=== PATIENT | female | born 1955 | race Hispanic/Latino ===

== ENCOUNTER → 2021-12-24 | Outpatient (CLI) | payer OTHER ==
[~2021-12-24] VITALS: Ht 10.2 cm; Wt 109.8 kg
== END | disposition home or self-care (01) ==
LOC: DTH 10:56
PROVIDERS: ATTEND Surgery
DX: Z71.3 Dietary counseling and surveillance (principal); E66.01 Morbid (severe) obesity due to excess calories; M19.91 Primary osteoarthritis, unspecified site; K76.0 Fatty (change of) liver, not elsewhere classified; E78.00 Pure hypercholesterolemia, unspecified
CPT/HCPCS: 97802

== ENCOUNTER 2022-02-11 06:22 | Day surgery (SDC) | payer OTHER ==
[~2022-02-11] VITALS: Ht 160 cm; Wt 120.2 kg
[2022-02-11 08:05] VITALS: BP 131/61
[2022-02-11] MEDS ORDERED: GLYCOPYRROLATE 0.2 MG/ML 5 ML VIAL ONE (09:13)
[2022-02-11] MEDS ORDERED: MIDAZOLAM HCL 1 MG/ML 2ML VIAL ONE (09:13)
[2022-02-11] MEDS ORDERED: PROPOFOL 10 MG/ML 20ML VIAL IV ONE (09:13)
[2022-02-11 09:30] VITALS: BP 141/77
[2022-02-11 09:35] VITALS: BP 128/68
[2022-02-11 09:40] VITALS: BP 124/67
== END 2022-02-11 09:59 | disposition home or self-care (01) ==
LOC: ENDO 06:22 → DAH 06:22 → ENDO 09:59
PROVIDERS: ATTEND Surgery
DX: K21.9 Gastro-esophageal reflux disease without esophagitis (principal); E11.9 Type 2 diabetes mellitus without complications; E78.5 Hyperlipidemia, unspecified; E66.01 Morbid (severe) obesity due to excess calories; E78.00 Pure hypercholesterolemia, unspecified; Z68.41 Body mass index [BMI] 40.0-44.9, adult; Z79.899 Other long term (current) drug therapy
CPT/HCPCS: 43235; 71045; 82948; 87635; 93005; A4215; A4221; A4222; A4223; A4606; A4663; J2250; J2704; J3490; 99152

== ENCOUNTER → 2022-12-13 | Outpatient (CLI) | payer OTHER ==
[~2022-12-13] MED LIST: ALBU8.5H8 IH; ASCO500C6 PO; ATOR20TA65 PO; CETI-89 PO; CHOL500051 PO; IOHEXOL 350 MG/ML 100ML INFUS..BTL IV ONE; MAGN100T5 PO; MONT-39 PO; MVIT PO; SERT-438 PO
== END | disposition home or self-care (01) ==
LOC: RAH 09:45
PROVIDERS: ATTEND Internal Medicine Cardiovascular Disease
DX: I51.7 Cardiomegaly (principal); I35.1 Nonrheumatic aortic (valve) insufficiency; R00.2 Palpitations
CPT/HCPCS: 71275; Q9967

== ENCOUNTER 2025-06-26 05:56 | Day surgery (SDC) | payer MEDICARE ==
[2025-06-24 10:03] LABS: IMMATURE GRANULOCYTE ABSOLUTE 0.01 K/uL (0-1); NUCLEATED RED BLOOD CELLS 0.0 % (0.0-0.19); PLATELET COUNT (AUTO) 184 K/uL (130-400); RED BLOOD CELL COUNT(AUTO) 4.57 MIL/uL (4.00-5.50); RED CELL DISTRIBUTION WIDTH 14.0 % (11.0-15.5); WHITE BLOOD COUNT (AUTO) 7.2 K/uL (4.8-10.8)
--- NOTE | 2025-06-24 10:08 | EKG ---
[facility] Test Date: 2025-06-24 Test Time: 09:51:37 Pat Name: MARY ELLEN ARCHULETA Department: [facility] Room: Gender: F Eligibility Consultant: [id number] : 1955 Requested By: NUBIA LAWRENCE Order Number: [id number] Reading MD: Madeline Hill Measurements Intervals [place] Rate: 65 P: 63 [place]: 170 QRS: 52 QRSD: 95 T: 61 QT: 419 QTc: 437 Interpretive Statements Sinus rhythm Compared to ECG 02/11/2022 07:32:32 No significant changes Electronically Signed On 06-24-2025 14:05:18 CDT by Madeline Hill Please click the below link to view image of tracing.
[2025-06-24 10:09] VITALS: BP 126/66; PULSE 69; RESP 14; TEMP 97.4
[2025-06-24 10:12] LABS: INR 1.04 (0.85-1.15)
[2025-06-24 10:43] LABS: CREATININE 0.8 mg/dL (0.5-1.0); GLOMERULAR FILTR. RATE CALC 79.0 mL/min (>90); GLUCOSE,RANDOM 89.0 mg/dL (70-105); SODIUM SERUM 141.0 mmol/L (136-145); UREA NITROGEN, BLOOD 21.0 mg/dL (7-18)
[~2025-06-26] VITALS: Ht 162.6 cm; Wt 92.3 kg
[~2025-06-26 05:56] MED LIST changes: -ALBU8.5H8 IH; -ASCO500C6 PO; -ATOR20TA65 PO; -CETI-89 PO; -CHOL500051 PO; +FEXO180T94 PO; +FLUT15.812 NS; +GABA-529 PO; -IOHEXOL 350 MG/ML 100ML INFUS..BTL IV ONE; -MAGN100T5 PO; +MORINGA PO; -MVIT PO; +PANT20TA18 PO; +ROSU10TA72 PO; -SERT-438 PO; +SERT-439 PO; +[UNRECOGNIZED DRUG - OTHER] PO
[2025-06-26 06:04] VITALS: BP 155/75; PULSE 77; RESP 18; TEMP 97.8
[2025-06-26] MEDS: 0.9%NACL 1000ML 1,000 ML IV SCH (06:48)
[2025-06-26] MEDS ORDERED: TIRZ10PE SQ (06:58)
[2025-06-26] MEDS ORDERED: SODIUM BICARB 50MEQ 50ML VIAL 50 ML ONE (07:28)
[2025-06-26] MEDS ORDERED: LIDOCAINE HCL 400MG/20ML VIAL ONE (07:28)
[2025-06-26] MEDS ORDERED: MIDAZOLAM HCL 1 MG/ML 2ML VIAL ONE (07:50)
[2025-06-26] MEDS ORDERED: BACITRACIN 1 EACH PACKET TP ONE (08:17)
--- NOTE | 2025-06-26 08:25 | PRN ---
LOOP RECORDER EXTRACTION Patient was brought to the lab in a fasting state after informed consent and sedated with 1 mg Versed and 25 mcg fentanyl. Under local anesthesia with 10 mL 1% lidocaine a left parasternal 1.5 cm incision was made and loop recorder was identified by blunt dissection, clamped and removed. Incision was closed with two, two 0 Prolene sutures. No complications occurred and the patient is transferred from the lab in stable condition. NUBIA LAWRENCE MD Jun 26, 2025 08:25
[2025-06-26 08:40] VITALS: BP 152/73; PULSE 61; RESP 18; TEMP 97
--- NOTE | 2025-06-26 08:40 | NUR ---
DRESSING: DRESSING TO ANTERIOR MID CHEST DRY/INTACT WITH NO ACTIVE BLEEDING PRESENT. NO REDNESS/SWELLING NOTED TO SURROUNDING AREA.
[2025-06-26 08:55] VITALS: BP 145/73; PULSE 59; RESP 16
--- NOTE | 2025-06-26 08:55 | NUR ---
DRESSING: DRESSING TO ANTERIOR MID CHEST REMAINS DRY/INTACT WITH NO ACTIVE BLEEDING PRESENT. NO REDNESS.SWELLING NOTED TO SURROUNDING AREA.
[2025-06-26 09:10] VITALS: BP 143/72; PULSE 57; RESP 13
--- NOTE | 2025-06-26 09:10 | NUR ---
DRESSING: DRESSING TO ANTERIOR MID CHEST REMAINED DRY/INTACT WITH NO ACTIVE BLEEDING. NO REDNESS/SWELLING NOTED TO SURROUNDING AREA.
== END 2025-06-26 09:15 | disposition home or self-care (01) ==
LOC: DAH 05:56
PROVIDERS: ATTEND Internal Medicine Cardiovascular Disease
DX: I47.19 Other supraventricular tachycardia (principal); E78.5 Hyperlipidemia, unspecified; F41.9 Anxiety disorder, unspecified; J45.909 Unspecified asthma, uncomplicated; F32.A Depression, unspecified; Z90.49 Acquired absence of other specified parts of digestive tract; Z79.01 Long term (current) use of anticoagulants; Z98.51 Tubal ligation status; Z82.49 Family history of ischemic heart disease and other diseases of the circulatory system; Z79.899 Other long term (current) drug therapy; Z98.890 Other specified postprocedural states
CPT/HCPCS: 80048; 85025; 85610; 85730; 36415; 93005; 99156; 33286; A4223 ×3; A4649; J3010; J3490 ×2; J7030; J2250; A4215 ×2; A4222; A4221; A4663; A4216; A4606